=== PATIENT | female | born 1965 | race Caucasian/White ===

== ENCOUNTER 2020-07-11 07:36 | Day surgery (SDC) | payer OTHER ==
[~2020-07-11 07:36] MED LIST: PROPOFOL INJ 200 MG/20 ML VIAL IV ONE
--- NOTE | 2020-07-11 09:54 | Operative Report ---
Operative Report DATE OF SURGERY: 07/11/20 Operative Report: The risk, benefits and alternatives of the procedure including the risk of bleeding, perforation requiring surgery have been explained to the patient in detail and informed consent is obtained. The patient is taken back to the endoscopy suite and placed in left, lateral decubital position. Timeout was called. Propofol medication is administered. Rectal examination is done which did not reveal any masses, tears or fissures. An Olympus videoscope is inserted in his patient's rectum and carefully advanced all the way to the cecum. Prep was good. The cecum was identified by the usual anatomical landmarks including the ileocecal valve as well as the appendiceal office. Photodocumentation is obtained. Scope was then sequentially pulled back via the various segments of the colon including the ascending colon, hepatic flexure, transverse colon, s plenic flexure, descending colon finding to the rectosigmoid portions of the colon. Retroflexion maneuvers performed. PREOPERATIVE DIAGNOSIS: Colorectal cancer screening POSTOPERATIVE DIAGNOSIS: Normal screening colonoscopy OPERATION: Diagnostic colonoscopy SURGEON: VERONICA FORTUNE ANESTHESIA: LMAC TISSUE REMOVED OR ALTERED: None. COMPLICATIONS: None. ESTIMATED BLOOD LOSS: None. INTRAOPERATIVE FINDINGS: As noted above. PROCEDURE: Patient tolerated the procedure well. No immediate postprocedure complications are noted. Patient is discharged in good condition. Discharge date 07/11/2020. Discharge diet: Regular. Discharge activity: Regular. 2 to 3-week follow-up to discuss findings. 10-year surveillance colonoscopy.
[2020-07-11 12:02] VITALS: BP 140/85
--- OUTSIDE RECORDS SUMMARY | 2020-07-14 08:54 | XMS REPORT ---
:1965 Author Organization [facility] Address [address] [place] [address] Care Team Providers Name Role Phone Makayla Sullivan Primary Care Physician Unavailable MD Brenda Hoffmann Attending Clinician Unavailable MD Brenda Hoffmann Attending Clinician Unavailable Allergies, Adverse Reactions, Alerts Allergy Name Allergy Status Severity Reaction(s) Onset Inactive Treat ing Comments Type Date Date Clinician Codeine Allergy to Active Nausea substance Lisinopril Allergy to Active Cough substance Losartan Allergy to Active Arthralgia substance (joint pain) codeine Propensity Active Moderate nausea to adverse reactions to drug Medications Ordered Filled Start Stop Current Ordering Indication Dosage Frequency Signature Comments Components Medication Medication Date Date Medication? Clinician (SIG) Name Name losartan 50 2020-0 Yes 50mg 50 mg = 1 mg oral 8-17 tab(s), tablet 09:00: PO, Daily 00 sertraline 2020-0 Yes 50mg 50 mg = 1 50 mg oral 8-17 tab(s), tablet 09:00: PO, Daily 00 Centrum 2020-0 Yes 11 1 tab(s), 8-17 PO, Daily 08:59: 00 [place] 5 2020-0 Yes 11 1 tab(s), mg-325 mg 8-17 PO, q6h, oral tablet 08:59: for pain, 00 0 Refill(s) gabapentin 2020-0 Yes 100mg 100 mg = 1 100 mg oral 8-17 cap(s), capsule 08:59: PO, Daily, 00 Pain sertraline 2020-0 Yes 25mg 25 mg = 1 25 mg oral 8-06 tab(s), tablet 10:36: PO, Daily 00 amlodipine No amlodipine 5 mg tablet 5 mg TAKE ONE tablet TABLET BY TAKE ONE MOUTH ONE TABLET BY TIME DAILY MOUTH ONE TIME DAILY hydrocodone No hydrocodon 5 e 5 mg-acetamin mg-acetami ophen 325 nophen 325 mg tablet mg tablet TAKE ONE TO TAKE ONE TWO TABLETS TO TWO BY MOUTH TABLETS BY EVERY 6 MOUTH HOURS EVERY 6 NEEDED HOURS NEEDED sertraline No sertraline 50 mg 50 mg tablet TAKE tablet ONE TABLET TAKE ONE BY MOUTH TABLET BY ONE TIME MOUTH ONE DAILY TIME DAILY Problems Condition Condition Condition Status Onset Resolution Last Treatin g Comments Name Details Category Date Date Treatment Clinician Date Fibrocystic Fibrocystic Problem Active 2020-0 disease of Disease of 8-12 breast Breast 00:00: 00 Multiple Multiple Problem Active 2020-0 joint pain Joint Pain 8-12 00:00: 00 History of History of Problem Active 2020-0 abnormal Abnormal 8-12 cervical Cervical 00:00: Papanicolao Papanicolao 00 u smear u Smear Postmenopau Postmenopau Problem Active 2020- zhou state zhou State 8-12 00:00: 00 Screening Screening Problem Active 2020- for for 8-12 malignant Malignant 00:00: neoplasm of Neoplasm of 00 breast Breast Screening Screening Problem Active 2020-0 for for 8-12 malignant Malignant 00:00: neoplasm of Neoplasm of 00 cervix Cervix Screening Screening Problem Active 2020-0 for for 8-12 malignant Malignant 00:00: neoplasm of Neoplasm of 00 colon Colon Chronic Chronic Problem Active 2020-0 kidney Kidney 7-17 disease Disease 00:00: stage 2 Stage 2 00 Laboratory Laboratory Problem Active 20200 test result Test Result 7-17 abnormal Abnormal 00:00: 00 Hyperlipide Hyperlipide Problem Active 2020-0 eugene eugene 7-17 00:00: 00 Depressive Depressive Problem Active 2020-0 disorder Disorder 7-14 00:00: 00 Spinal cord Spinal Cord Problem Active 2020-0 compression Compression 6-22 00:00: 00 Stenosis of Stenosis of Problem Active 20200 interverteb Interverteb 6 ral ral 00:00: foramina Foramina 00 Monoparesis Monoparesis Problem Active 20200 - arm - Arm 01-24 00:00: 00 Essential Essential Problem Active 2020-0 hypertensio Hypertensio 529 n n 00:00: 00 Cervical Cervical Problem Active 2020-0 spondylosis Spondylosis 5-29 with with 00:00: radiculopat Radiculopat 00 hy hy Neck pain Neck Pain Problem Active 20200 01-24 00:00: 00 Carpal Carpal Problem Active tunnel 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-24 syndrome of Syndrome of 00:00: left wrist Left Wrist 00 Body mass Body Mass Problem Active index 25-29 Index 25-29 - - - 00:00: overweight Overweight 00 Spasm of Spasm of Problem Active back Back 01-15 muscles Muscles 00:00: 00 Pain in Pain in Problem Active left arm Left Arm 01-15 00:00: 00 Long-term Long-term Problem Active drug Drug 20 therapy Therapy 00:00: 00 Procedures Procedure Date / Time Performed Performing Clinician Devic e Anterior Cervical Discectomy and 2020-04-14 10:25:00 Fusion Level 2 IPO (NA)1 Cervical Arthrodesis 2020-04-14 00:00:00 Prosthetic Replacement of Cervical 2020-04-14 00:00:00 Intervertebral Disc Abdominoplasty and liposuction Cholecystectomy Liposuction of abdomen Salpingectomy2 Abdominoplasty Liposuction of Subcutaneous Tissue Extraction of [place] Tooth Left Oophorectomy Cholecystectomy Results Test Description Test Time Test Comments Text Results Atomic Results Result Comments [facility] 2019 CORONAVIRUS HUSAM PANEL\S\ 2020-07-08 08:50:00 Test Item Value Reference Range Comments [facility] CORONAVIRUS 2019 HUSAM SOURC (test code = SOURCE3) See comment [facility] 2019 NOVEL CORONAVIRUS HUSAM (test code = [id number]) N ot Detected Not Detect Drugs identified in Urine by Screen [id number] 17:44:00 Test Item Value Reference Range Comments BZO (test code = BZO) negative BAR (test code = BAR) negative HELIO (test code = HELIO) negative THC (test code = THC) negative MET (test code = MET) negative OPI (test code = OPI) negative MTD (test code = MTD) negative TCA (test code = TCA) negative OXY (test code = OXY) negative MDMA (test code = MDMA) negative PCP (test code = PCP) negative AMP (test code = AMP) negative Assessments Condition Name Status Diagnosis Date Treating Clinici an Essential hypertension Active 2020-05-07 23:52:49 Hyperlipidemia Active 2020-05-07 23:52:49 Chronic kidney disease stage 2 Active 2020-05-07 23:52: 49 Cervical spondylosis with radiculopathy Active 23:52:49 Multiple joint pain Active 2020-05-07 23:52:49 Long-term drug therapy 2020-05-07 23:52:49 Body mass index 25-29 - overweight 2020-05-07 23 :52:49 Screening for malignant neoplasm of 2020-05-07 2 3:52:49 breast History of abnormal cervical Active 2020-05-07 23:52:49 Papanicolaou smear Screening for malignant neoplasm of 2020-05-07 2 3:52:49 cervix Postmenopausal state 2020-05-07 23:52:49 Screening for malignant neoplasm of 2020-05-07 2 3:52:49 colon Depressive disorder 2020-05-07 23:52:49 Essential hypertension 2020-04-25 03:36:46 Hyperlipidemia 2020-04-25 03:36:46 Chronic kidney disease stage 2 2020-04-25 03:36: 46 Cervical spondylosis with radiculopathy 03:36:46 Multiple joint pain 2020-04-25 03:36:46 Long-term drug therapy 2020-04-25 03:36:46 Body mass index 25-29 - overweight 2020-04-25 03 :36:46 Screening for malignant neoplasm of 2020-04-25 0 3:36:46 breast History of abnormal cervical Active 2020-04-25 03:36:46 Papanicolaou smear Screening for malignant neoplasm of 2020-04-25 0 3:36:46 cervix Postmenopausal state 2020-04-25 03:36:46 Screening for malignant neoplasm of 2020-04-25 0 3:36:46 colon Depressive disorder 2020-04-25 03:36:46 Cervicalgia Active 0 Encounter for screening for other viral Active 0 diseases Essential hypertension 2020-04-09 22:53:07 Hyperlipidemia 2020-04-09 22:53:07 Chronic kidney disease stage 2 2020-04-09 22:53: 07 Cervical spondylosis with radiculopathy 22:53:07 Multiple joint pain 2020-04-09 22:53:07 Long-term drug therapy 2020-04-09 22:53:07 Body mass index 25-29 - overweight 2020-04-09 22 :53:07 Screening for malignant neoplasm of 2020-04-09 2 2:53:07 breast History of abnormal cervical Active 2020-04-09 22:53:07 Papanicolaou smear Screening for malignant neoplasm of Active 2020-04-09 2 2:53:07 cervix Postmenopausal state Active 2020-04-09 22:53:07 Screening for malignant neoplasm of Active 2020-04-09 2 2:53:07 colon Depressive disorder Active 2020-04-09 22:53:07 Cervicalgia Active 0 Encounters Start End Encounter Admission Attending Care Care Encounter Date/Time Date/Time Type Type Clinicians Facility Department ID 2020-05-08 2020-05-08 [facility]ayla [facility] [id number] 00:00:00 00:00:00 Nate COREMAKER EXPERIMENTAL: [facility]mediate Immediate & 0091 0 [address] [facility] [address] [address], Ph. 2020-04-25 2020-04-25 Makayla Small [facility] [id number] 00:00:00 00:00:00 Nate COREMAKER EXPERIMENTAL: Immediate Immediate & 0082 8 2001 S & Family [facility], [address] [address], Ph. 2020-04-14 2020-04-15 [facility] [id number] 08:26:07 09:20:00 Nicanor Hoffmann 2020-04-10 2020-04-10 [facility] [id number] 12:45:00 23:59:59 Nicanor Hoffmann 2020-04-10 2020-04-10 [facility] [id number] 00:00:00 00:00:00 Nate COREMAKER EXPERIMENTAL: Immediate Immediate & [address]81 [address] [address], Ph. 2020-04-03 2020-04-04 [facility] [id number] 10:14:39 23:59:59 Nicanor Hoffmann Immunizations Ordered Immunization Filled Immunization Date Status Commen ts Refusal Reason Name Name influenza, 2019-10-20 Completed injectable, 00:00:00 quadrivalent Payers Payer Name Policy Type Policy Number Effective Date Expiration D ate Social History Smoking Status Start Date Stop Date Ex-smoker (finding) 2020-04-14 09:26:43 2020-04-14 09:26:43 Social History Observation Description Sex Female Vital Signs Vital Name Observation Time Observation Value Comments Height 2020-05-08 00:00:00 63 [in_i] BMI (Body Mass Index) 2020-05-08 00:00:00 26 kg/m2 Body Weight 2020-05-08 00:00:00 147 [lb_av] Respiratory Rate 2020-04-15 07:00:00 18 /min Systolic Blood Pressure 2020-04-15 07:00:00 131 mm[Hg] Diastolic Blood Pressure 2020-04-15 07:00:00 75 mm[Hg] Temperature Oral 2020-04-15 07:00:00 36.5 Kiersten Peripheral Pulse Rate 2020-04-15 07:00:00 75 /min Temperature Oral 2020-04-15 04:00:00 36.4 Kiersten Peripheral Pulse Rate 2020-04-15 04:00:00 72 /min Respiratory Rate 2020-04-15 04:00:00 17 /min Systolic Blood Pressure 2020-04-15 04:00:00 133 mm[Hg] Diastolic Blood Pressure 2020-04-15 04:00:00 70 mm[Hg] Temperature Oral 2020-04-15 00:00:00 36.6 Kiersten Peripheral Pulse Rate 2020-04-15 00:00:00 80 /min Respiratory Rate 2020-04-15 00:00:00 17 /min Systolic Blood Pressure 2020-04-15 00:00:00 141 mm[Hg] Diastolic Blood Pressure 2020-04-15 00:00:00 67 mm[Hg] Heart Rate Monitored 2020-04-14 12:40:00 78 /min Temperature - Temporal Artery 2020-04-14 12:40:00 36.4 Kiersten Heart Rate Monitored 2020-04-14 12:35:00 74 /min Heart Rate Monitored 2020-04-14 12:30:00 72 /min Temperature - Temporal Artery 2020-04-14 09:13:00 36.2 Kiersten Apical Heart Rate 2020-04-14 09:13:00 71 /min Hospital Discharge Instructions Patient Yowgwoucw96/18/2020 08:16:29Venous Thromboembolism PreventionVenous Thromboembolism PreventionVenous thromboembolism (VTE) is a condition in which a blood clot (thrombus) develops in the body. A thrombus usually occurs in a deep vein in the leg or the pelvis (DVT), but it can also occur in thearm. Sometimes, pieces of a thrombus can break off from its original place of development and travelthrough the bloodstream to other parts of the body. When that happens, the thrombus is called an embolus. An embolus that travels to one or both lungs is called a pulmonary embolism. An embolism can block the blood flow in the blood vessels of other organs as well.VTE is a serious health condition that can cause disability or . It is very important to get help right away and to not ignore symptoms.How can a VTE be prevented? Exercise regularly. Take a brisk 30 minute walk every day. Staying active and moving around can help you to prevent blood clots. Avoid sitting or lying in bed for long periods of time without moving your legs. Change your position often, especially during long-distance travel (over 4 hours). If you are a woman who is over 35 years of age, avoid unnecessary use of medicines that contain estrogen. These include control pills and hormone replacement therapy. Do not smoke, especially if you take estrogen medicines. If you need help quitting, ask your health care provider. Eat plenty of fruits and vegetables. Ask your health care provider or dietitian if there are foods that you should avoid. Maintain a weight that is appropriate for your height. Ask your health care provider what weight is healthy for you. Wear loose-fitting clothing. Avoid constrictive or tight clothing around your legs or waist. Try not to bump or injure your legs. Avoidcrossing your legs when you are sitting. Do not use pillows under your knees while lying down unless told by your health care provider. Wear support hose (compression stockings or MONSTER hose) as told by your health care provider. Compression stockings increase blood flow in your legs and can help prevent blood clots. Do not let them bunch up when you are wearing them.How can I prevent VTE when I travel?Long-distance travel (over 4 hours) can increase the risk of a VTE. To prevent VTE when traveling: Exercise your legs every hour by standing, stretching, and bending and straightening your legs. If you are traveling by airplane, train, or bus, walk up and down the aisle as often as possible to get your blood moving. If you are traveling by car, stop and get out of the car every hour to exercise your legs and stretch. Other types of exercise might include: Keeping your feet flat on the ground and raising your toes. Switching from tightening the muscles in your calves and thighs to relaxing those same muscles while you are sitting. Pointing and flexing your feet at the ankle jointswhile you are sitting. Stay well hydrated while traveling. Drink enough water to keep your urine clear or pale yellow. Avoid drinking alcohol during long travel.Generally, it is not recommended that you take medicines to prevent DVT during routine travel.How can VTE be prevented if I am hospitalized?A VTE may be prevented by taking medicines that are prescribed to prevent blood clots (anticoagulants). You can also help to prevent VTE while in the hospital by taking these actions: Get out ofbed and walk. Ask your health care provider if this is safe for you to do. Request the use of a sequential compression device (SCD). This is a machine that pumps air into compression sleeves that are wrapped around your legs. Request the use of compression stockings, which are tight, elastic stoc kings that apply pressure to the lower legs. Compression stockings are sometimes used with SCDs.How can I prevent VTE after surgery?Understand that there is an increased risk for VTE for the first 46 weeks after surgery. During this time: Avoid long-distance travel (over 4 hours). If you must travel during this time, ask your health care provider about additional preventive actions that you cantake. These might include exercising your arms and legs every hour while you travel. Avoid sitting or lying still for too long. If possible, get up and walk around one time every hour. Ask your health care provider when this is safe for you to do.Get help right away if: You have new or increasedpain, swelling, or redness in an arm or leg. You have numbness or tingling in an arm or leg. You have shortness of breath while active or at rest. You have chest pain. You have a rapid or irregular heartbeat. You feel light- headed or dizzy. You cough up blood. You notice blood in your vomit, bowel movement, or urine.These symptoms may represent a serious problem that is an emergency. Do not wait to see if the symptoms will go away. Get medical help right away. Call your local emergency services (911 in the [place] Do not drive yourself to the hospital.This information is not intended to replace advice given to you by your health care provider. Make sure you discuss any questions you have with your health care provider.Document Released: 08/03/2010 Document Revised: 03/31/2018 Document Reviewed: 12/10/2015Elsevier Interactive Patient Education ? 2019 [employer].04/15/2020 08:16:29Preventing Surgical Site Infections ([facility]) (CUSTOM)PREVENTING SURGICAL SITE INFECTIONSWhat can you do?Hand HygieneWashing your hands or using an alcohol gel is the number one way to prevent infection.Always wash your hands or use an alcohol hand rub before you touch the surgical site. Make sure anyone else does the same before touching the surgical site.Caring for your surgical siteCareof your surgical site continues after you go home. There are some simple things that you can do to help prevent infection at your surgical site. Anyone who touches the surgical site, including yourself and healthcare providers, should wash hands, or use an alcohol hand rub, before and after touching the surgical site Cleanse the wound according to your doctors instructions. Do not removethe dressing unless your doctor has instructed you to do so. Avoid tub baths, soaking in water, or swimming until your surgeon tells you it is OK. Do not allow your pet to sit or lie on the surgical site. Make sure you are eating nutritiously. Stop tobacco use. Place clean linen where you will be sleeping. Keep the wound clean and dry.Report any redness or drainage to your surgeon immediately.YpqdkyzwEzwf04/18/2020 08:16:29Preventing Constipation After SurgeryPreventing Constipation After SurgeryConstipation is a common problem after surgery. Many things can make constipation more likely after a surgery, including: Certain medicines, especially numbing medicines (anesthetics)and very strong pain medicines called opioids. Feeling stressed because of the surgery. Eatingdifferent foods than normal. Being less active.Symptoms of constipation include: Having fewer than three bowel movements a week. Straining to have a bowel movement. Having hard, dry, or wsyafj-gljt-bevake stools. Feeling full or bloated. Having pain in the lower abdomen. Not feeling relief after having a bowel movement.You can take steps to help prevent constipation after surgery.Follow these instructions at home:Eating and drinking Eat foods that have a lot of fiber in them.These include fresh fruits and vegetables, whole grains, and beans. Limit foods that are high in fat and processed sugars, such as fried and sweet foods. These include dominican fries, hamburgers, cookies, and candy. Take a fiber supplement as told by your health care provider. If you are not taking a fiber supplement and you think you are not getting enough fiber from foods, talk to your health care provider about adding a fiber supplement to your diet. Drink enough fluid to keep your urine pale yellow. Drink clear fluids, especially water. Avoid drinking alcohol, caffeine, and soda. These can make constipation worse.Activity After surgery, return to your normal activities slowly, or w hen your health care provider says it is okay. Start walking as soon as you can. Try to go a little farther each day. Once your health care provider approves, do some sort of regular exercise. This helps prevent constipation.Bowel movements Go to the restroom when you have the urge to go. Do not hold it in. Try drinking something hot to get a bowel movement started. Keep track of how often you use the restroom.Medicine Take jtqn-wox-ivkdatf and prescription medicines only as told by your health care provider. Talk to your health care provider about medicines that may help prevent constipation, particularly if you have a history of constipation. Your health care provider may suggest a stool softener, laxative, or fiber supplement. Do not take any medicines without talking to your health care provider first.Contact a health care provider if: You used stool softeners or laxatives and still have not had a bowel movement within 2448 hours after using them. You have not had a bowel movement in 3 days. You have a fever.Get help right away if: Your constipation lasts for more than 4 days or gets worse. You have bright red blood in your stool. You have painin the abdomen or rectum. You have very bad cramping. You have thin, pencil-like stools. You have unexplained weight loss.Summary Constipation is a common problem after surgery. Many thingscan make constipation more likely after a surgery, including certain medicines, eating different foods than normal, and being less active. Symptoms of constipation include having fewer than three bowel movements a week, straining to have a bowel movement, pain in the lower abdomen, and feeling fullor bloated. A diet rich in high-fiber foods, fluids, physical activity, and medicines, such as stool softeners and laxatives, can help prevent constipation.This information is not intended to replace advice given to you by your health care provider. Make sure you discuss any questions you have withyour health care provider.Document Released: 12/10/2013 Document Revised: 11/14/2017 Document Reviewed: 11/14/2017Elsevier Interactive Patient Education ? 2019 [employer].04/15/2020 08:16:29Post-Operavtive Discharge Instructions ([facility]) (CUSTOM)Post-Operative Discharge InstructionsWHAT TO EXPECT AFTER ANESTHESIAAfter the procedure, it is typical to experience: Nausea and vomiting. Sorethroat. Sleepiness. Dizziness. Weakness. Pain at the IV site. Trouble concentrating.HOME CARE INSTRUCTIONSFor the first 24 hours after anesthesia: Have a responsible person with you. Do not care for small children independently. Do not drive a car. Do not operate hazardous machinery. Do not drink alcohol. Do not take medicine that has not been prescribed by your health careprovider. Do not sign important papers or make important decisions.EATING AND DRINKING Follow any instructions from your health care provider about eating or drinking restrictions. When you feel hungry, start by eating small amounts of foods that are soft and easy to digest (bland). Gradually return to your regular diet. Drink enough fluid to keep your urine a pale yellow. It is not recommended that you take pain medicine on an empty stomach. Nausea and vomiting are common after receiving anesthesia. If you vomit, rehydrate by drinking water, juice or clear broth.SEEK MEDICAL CARE IF: You have nausea and vomiting that continue for more than one day after anesthesia. Youdevelop a rash. You have redness around your IV site that gets worse. You have a temperature greater that 101 degrees orally or 102 degrees rectally.SEEK IMMEDIATE MEDICAL CARE IF: You have difficulty breathing. You have chest pain. You are unable to pass urine. You have blood in your urine or stool, or you vomit blood. You have any allergic reactions.BLEEDING RISK AFTER SURGERYIt is normal to have some bleeding after surgery, but if you notice bleeding coming through your bandag es: Have someone hold firm pressure on the surgical site and reinforce it with additional dressing. If you are bleeding from an extremity, elevate the extremity above the level of your heart.WHENSHOULD YOU CALL FOR HELP? If your incision is still bleeding after 15 minutes, call your surgeon immediately. If your dressing is fully saturated in under an hour, or you are unable to stop the bleeding with firm pressure, call your surgeon immediately. If you cant get in touch with your doctor, go to Urgent Care or to the Emergency Department at the nearest hospital.Call 911 anytime you think you may need emergency care.Make sure you follow your doctors instructions regarding dressing changes, bathing and surgical incision site care. Make sure you discuss any questions you have with your health care provider.PREVENTING SURGICAL SITE INFECTIONSWHAT IS A SURGICAL SITE INFECTION?A surgical site infection is an infection that occurs after surgery in the part of the body where the surgery took place. Most patients who have surgery do not develop an infection. However, infections develop in about 1 to 3 out of every 100 patients who have surgery.Some of the common symptoms of a surgical site infection are: Redness and pain around the area where you had surgery Drainage of cloudy fluid from your surgical wound Fever Swelling Itching BurningWHAT CAN YOU DO TO HELP PREVENT A SURGICAL SITE INFECTION?Hand HygieneWashing your hands or using an alcohol gel is the numberone way to prevent infection.Always wash your hands or use an alcohol hand rub before you touch the surgical site. Make sure anyone else does the same before touching the surgical site.Caring for yoursurgical siteCare of your surgical site continues after you go home. There are some simple things that you can do to help prevent infection at your surgical site. Anyone who touches the surgical site, including yourself and healthcare providers, should wash hands, or use an alcohol hand rub, before and after touching the surgical site Cleanse the wound according to your doctors instructions. Do not remove the dressing unless your doctor has instructed you to do so. Avoid tub baths, soaking in water, or swimming until your surgeon tells you it is OK. Do not allow your pet to sit or lie on the surgical site. Make sure you are eating nutritiously. Stop tobacco use. Place clean linen where you will be sleeping. Keep the wound clean and dry.Report any signs of infectionto your surgeon immediately.Pain Relief Preoperatively and PostoperativelyIf you have questions, problems, or concerns about the pain that you may feel after surgery, let your health care provider know.?Patients have the right to assessment and management of pain. Severe pain after surgeryand the fear or anxiety associated with that painmay cause extreme discomfort that: Prevents sleep. Decreases the ability to breathe deeply and to cough. This can result in pneumonia or other upper airway infections. Causes the heart to beat more quickly and the blood pressure to be higher. Increases the risk for constipation and bloating. Decreases the ability of wounds to heal. May result in depression, increased anxiety, and feelings of helplessness.Relieving pain before surgery (preoperatively) is also important because it lessens pain that you have after surgery (postoperatively). Patients who receive pain relief both before and after surgery experience greater pain relief than those who receive pain relief only after surgery. Let your health care provider know if you are having uncontrolled pain.?This is very important.?Pain after surgery is more difficult to manage if it is severe, so receiving prompt and adequate treatment of acute pain is necessary. If you become constipatedafter taking pain medicine, drink more liquids if you can. Your health care provider may have you take a mild laxative.PAIN CONTROL METHODSYour health care providers follow policies and procedures about the management of your pain.?These guidelines should be explained to you before surgery.?Plans for pain control after surgery must be decided upon by you and your health care provider and put into usewith your full understanding and agreement.?Do not be afraid to ask questions about the care that you are receiving.Your health care providers will attempt to control your pain in various ways, and these methods may be used together (multimodal analgesia). Using this approach has many benefits for you, including being able to eat and move around.As-Needed Pain Control You may be given pain medicine through an IV tube or as a pill or liquid that you can swallow. Let your health care provider know when you are having pain, and he or she will give you the pain medicine that is ordered for you.Medicine That Numbs the Area (Local Anesthetic)You may be given pain medicine: As an injection near the area of the pain (local infiltration). As an injection near the nerve that controls the sensationto a specific part of your body (peripheral nerve block). In your spine to block pain (spinal block).Opioids Moderate to moderately severe acute pain after surgery may respond to opioids.?Opioidsare narcotic pain medicine. Opioids are often combined with non-narcotic medicines to improve pain relief, lower the risk of side effects, and reduce the chance of addiction. If you follow your health care provider's directions about taking opioids and you do not have a history of substance abuse, your risk of becoming addicted is very small.?To prevent addiction, opioids are given for short periods of time in careful doses.Other Methods of Pain Control Steroids. Physical therapy. Heat and cold therapy. Compression, such as wrapping an elastic bandage around the area of the pain. Massage.This information is not intended to replace advice given to you by your health care provider.Make sure you discuss any questions you have with your health care provider.[employer] Interactive Patient Education ?2015 [employer].04/15/2020 08:16:29Pain Medicine Instructions, Ujmj-hj-IkphYfof Medicine InstructionsYou may need pain medicine after an injury or illness. Two common types of pain medicine are: Opioid pain medicine. These may be called opioids. Non-opioid pain medicine. This includes NSAIDs.It is important to follow your doctor's instructions when you are taking pain medicine.Doing this can keep yourself and others safe.How can pain medicine affect me?Pain medicine may not make all of your pain go away. It should make you comfortable enough to: Move. Breathe. Do normal activities.Opioids can cause side effects, such as: Trouble pooping (constipation). Feeling sick to your stomach (nausea). Throwing up (vomiting). Feeling very sleepy. Confusion. Taking the medicine for nonmedical reasons even though taking it hurts your health and well-being (opi oid use disorder). Trouble breathing (respiratory depression).Taking opioids for longer than 3 days raises your risk of these side effects.Taking opioids for a long time can affect how well you can do daily tasks. Taking them for a long time also puts you at risk for: Car crashes. Depression. Suicide. Heart attack. Taking too much of the medicine (overdose). This can lead to .What should I do to stay safe while taking pain medicine?Take your medicine as told Take pain medicine exactly as told by your doctor. Take it only when you need it. Write down the times when you take your pain medicine. Look at the times before you take your next dose. Take other ustk-tfu-eeapk er or prescription medicines only as told by your doctor. If your pain medicine has acetaminophen in it, do not take any other acetaminophen while you are taking this medicine. Too much can damage the liver. Get pain medicine prescriptions from only one doctor.Avoid certain activitiesWhile you are taking prescription pain medicine, and for 8 hours after your last dose: Do not drive. Do not use machinery. Do not use power tools. Do not sign legal documents. Do not drink alcohol. Do not take sleeping pills. Do not take care of children by yourself. Do not do any activities that involve climbing or being in high places. Do not go into any body of water unless there is an adult nearby who can watch you and help you if needed. This includes: Lakes. Black. Oceans. Spas. Swimming pools.Keep others safe Store your medicine as told by your doctor. Keepit where children and pets cannot reach it. Do not share your pain medicine with anyone. Do not save any leftover pills. If you have leftover pills, you can: Bring them to a take-back program. Bring them to a pharmacy that has a drug disposal container. Throw them in the trash. Check the medicine label or package insert to see if it is safe to throw it out. If it is safe, take the medicine out of the container. Mix it with something that makes it unusable, such as pet waste. Then put the medicine in the trash.General instructions Talk with your doctor about other ways to manage your pain. If you have trouble pooping: Drink enough fluid to keep your pee (urine) pale yellow. Use a poop (stool) softener as told by your doctor. Eat more fruits and vegetables. Keep all follow-up visits as told by your doctor. This is important.Contact a doctor if: Your medicine is not helping with your pain. You have a rash. You feel depressed.Get help right away if:Seek medical care right away if you are taking pain medicines and you (or people close to you) notice any of the following: Trouble breathing. Breathing that is shorter than normal. Breathing that is more shallow than normal. Confusion. Sleepiness. Trouble staying awake. Feeling sick to your stomach. Throwing up. Your skin or lips turning pale or bluish in color. Tongue swelling.If you ever feel like you may hurt yourself or others, or have thoughts about taking your own life, get help right away. Go to your nearest emergency department or call: Your local emergency services(911 in the [place] A suicide crisis helpline, such as the National Suicide Prevention Lifeline at1-870.668.5173. This is open 24 hours a day.Summary Take your pain medicine exactly as told by your doctor. Pain medicine can help lower your pain. It may also cause side effects. Talk with your doctor about other ways to manage your pain. Follow your doctor's instructions about how to take your pain medicine and keep others safe. Ask what activities you should avoid while taking pain medi cine.This information is not intended to replace advice given to you by your health care provider. Make sure you discuss any questions you have with your health care provider.Document Released: 01/31/2009 Document Revised: 03/27/2018 Document Reviewed: 03/27/2018[employer] Interactive Patient Education ? 2019 [employer].04/15/2020 08:16:29[employer] [place] Patient Safety: A Guide to Preventing Falls at Home (CUSTOM)[facility] Patient InformationPatient Safety: A Guide to Preventing Falls at HomeThe [facility] Patient InformationOriginal Date: 03/17/06 Revised date: 04/20/11Patient Safety: A Guide to Preventing Falls At Home Why is it important to prevent falls?Falls and the complications associated with falls are one of the most serious health problems facing the elderly. Preventing a fall is important to maintaining an active and independent lifestyle.Who is at risk for falls?Anyone can fall. No one wants to fall. Falls can occur in any age group; at any time and at any place. A fall can be a very serious and life threatening event for any person age 64 or older.Why do people fall?An unsafe environment may cause falls. An illness or physical condition may affect your strength and balance, making you more likely to fall. Some environmental factors that may cause falls are: Wet floors Loose carpets, tiles and throw rugs Equipment in halls or walkways Poor lighting Waxed floors Poor fitting or inadequate footwear Inappropriate use of assistive devices, canes, walkers, andwheelchairs Any other object at the floor level that a person can trip or slip onWhat illnesses or conditions make you unsteady on your feet or at risk for injury due to fall?Illness or conditions that may make you unsteady on your feet are: Poor vision/hearing Poor gait/mobility Muscle weakness Incontinence Syncope (dizziness) Low blood pressureLow blood sugar Seizures Poor nutrition/dehydration Medication reactions At risk for bleeding At risk for fractures Advanced age (>80)Standard [place] Order Number - [id number] [facility] CenterPatient InformationOriginal Date: 03/17/06 Revised date: 04/20/11Patient Safety: A Guide to PreventingFalls At Home What should I tell my doctor? See your doctor as prescribed. See your eye doctoryearly. Tell your doctor if you have fallen and describe the circumstancesofthefall(s). Tell your doctor if you use any walker aids, such as a cane or awalker. Tell your doctor about any vision problems and any other medicalproblems you may have. Tell you doctor if you have any side effects from yourmedications. Take good care of your feet. Let your doctor know if you are taking laxatives.How can I make home safe? When getting out of bed, sit on the side of the bed before standingup. Place grab bars securely mounted in bathrooms around toilets,bath tubs, and shower areas. Place hand rails on both sides of stairwells. Make sure your home is well lit. Use night-lights in the bedroom, bathroom, hallways andstairways. Remove throw rugs, or fasten them to the floor carpet tape. Tack down carpet edges. Remove loose tiles. Remove electrical cords from pathways.Be sure to tell your doctor about all medications you are taking.Adapted from: Preventing Falls: Instructions for Patients and Families; [facility], January 2001 A Patient's Guide to Preventing Falls, The [place] [employer] SocietyStandard [place] Order Number - [id number] 08:16:29Incision Care, Adult, Uehu-uu-HntzTqmjwgwr Care, AdultAn incision is a cut that a doctor makes in your skin for surgery (for a procedure). Most times, these cuts are closed after surgery. Your cut from surgery may be closed with stitches (sutures), judd, skin glue, or skin tape (adhesive strips).You may need to return to your doctor to have stitches or judd taken out. This may happen many days or many weeks after your surgery. The cut needs to be well cared for so it does not get infected.How to care for your cutCut care Follow instructions from your doctor about how to take care of your cut. Make sure you: Wash your hands with soap and water before you change your bandage (dressing). If you cannot use soap and water, use hand oracle bpm consultant. Change your bandage as told by your doctor. Leave stitches, skin glue, or skin tape in place. They may need to stay in place for 2 weeks orlonger. If tape strips get loose and curl up, you may trim the loose edges. Do not remove tape strips completely unless your doctor says it is okay. Check your cut area every day for signs of infection. Check for: More redness, swelling, or pain. More fluid or blood. Warmth. Pus or a bad smell. Ask your doctor how to clean the cut. This may include: Using mild soap and water. Using a clean towel to pat the cut dry after you clean it. Putting a cream or ointment on the cut.Do this only as told by your doctor. Covering the cut with a clean bandage. Ask your doctor when you can leave the cut uncovered. Do not take baths, swim, or use a hot tub until your doctor says it is okay. Ask your doctor if you can take showers. You may only be allowed to take sponge baths for bathing.Medicines If you were prescribed an antibiotic medicine, cream, or ointment, take the a ntibiotic or put it on the cut as told by your doctor. Do not stop taking or putting on the antibiotic even if your condition gets better. Take gmmx-dvz-dzmffyx and prescription medicines only as told by your doctor.General instructions Limit movement around your cut. This helps healing. Avoid straining, lifting, or exercise for the first month, or for as long as told by your doctor. Follow instructions from your doctor about going back to your normal activities. Ask your doctor what activities are safe. Protect your cut from the sun when you are outside for the first 6 months, orfor as long as told by your doctor. Put on sunscreen around the scar or cover up the scar. Keep all follow-up visits as told by your doctor. This is important.Contact a doctor if: Your have more redness, swelling, or pain around the cut. You have more fluid or blood coming from the cut. Your cut feels warm to the touch. You have pus or a bad smell coming from the cut. You have a fever or shaking chills. You feel sick to your stomach (nauseous) or you throw up (vomit). You aredizzy. Your stitches or judd come undone.Get help right away if: You have a red streak coming from your cut. Your cut bleeds through the bandage and the bleeding does not stop with gentle pressure. The edges of your cut open up and separate. You have very bad (severe) pain. You have a rash. You are confused. You pass out (faint). You have trouble breathing and you have afast heartbeat.This information is not intended to replace advice given to you by your health care provider. Make sure you discuss any questions you have with your health care provider.Document Released: 11/06/2012 Document Revised: 04/22/2017 Document Reviewed: 04/22/2017[employer] Interactive Patient Education ? 2019 [employer].04/15/2020 08:16:29How to Use Cold Therapy, Whfb-ga-FpwbCgp to Use ColdTherapyCold therapy, or cryotherapy, is a treatment that uses cold temperatures to treat an injury or medical condition. It includes using cold packs or ice packs to reduce pain and swelling. Only use cold therapy if your doctor says it is okay.What are the risks?Generally, cold therapy is a safe treatment. However, it is not safe for: People who are not able to say they are in pain. These includesmall children and people who have memory problems. People who have certain conditions, such as: A problem in the vessels that slows blood flow to the fingers and toes (Raynaud's syndrome). Feeling very cold easily (cold hypersensitivity). Lack of feeling in the area being iced.Cold therapy may not be safe for people who have other conditions. Do not use it without talking to your doctorif you have: A heart condition. High blood pressure. Open or healing wounds. An infection. Pain and swelling in your joints (rheumatoid arthritis). Poor blood flow in the body. Diabetes. Certain skin conditions.How can I make a cold pack?When using a cold pack at home to reducepain and swelling, you can use: A silica gel cold pack that has been left in the freezer. You canbuy this online or in stores. A sealable plastic bag that has been filled with crushed ice. A washcloth or paper towels soaked in cold (or ice) water. A plastic bag of frozen vegetables. Throwthem away when you are finished using them as a cold pack.Supplies needed: A cold pack. A towel. This can be dry or damp, based on what you like.How to use cold therapy1. Have your cold pack ready.2. Place a towel between the cold pack and your skin. You may also wrap the cold pack in a towel.3.Put the cold pack on the affected area. Keep it on for no more than 20 minutes at a time.4. Check your skin after 5 minutes to make sure that there is no damage to the area. Check for: White spots on your skin. Your skin may look blotchy or mottled. Skin that looks blue or pale. Skin that feels waxy or hard.5. Repeat these steps as many times each day as told by your doctor.Always use a towel to avoid direct contact with your skin.Contact a doctor if: You start to have white spots on your skin. This may give your skin a blotchy or mottled look. Your skin turns blue or pale. Your skin becomes waxy or hard. Your swelling gets worse.Summary Cold therapy, or cryotherapy, is used to treat an injury or other conditions. It includes using cold packs or ice packs to reduce pain and swelling. Cold therapy is not safe for people who are not able to say they are in pain. When using cold packs or ice packs, always place a towel between the cold source and your skin. Check your skin after 5 minutes of icing it. This is to make sure that there is no skin damage. Contact your doctor if you notice changes in your skin or your swelling gets worse.This information is not intended to replace advice given to you by your health care provider. Make sure you discuss any questions you have with your health care provider.Document Released: 01/31/2009 Document Revised: 05/14/2019 Document Reviewed: 05/14/2019[employer] Interactive Patient Education ? 2019 [employer].04/15/2020 08:16:29Hand WashingHand WashingGerms such as bacteria, viruses, and parasites are found everywhere. They can be in the air and water, and they can be on surfaces like food, door handles, and your skin. Every day, your hands come into contact with germs. Many of these germs can make you and your family sick. Washing your hands is one of the easiest and most effective ways to lower your risk of getting and sharing germs.When should I wash my hands?You should wash your hands whenever you think they are dirty. You should also wash your hands: Before: Visiting a baby or anyone with a weakened disease-fighting system (immunesystem). Putting in or taking out contact lenses. After: Using the bathroom or helping someone else use the bathroom. Working or playing outside. Touching or taking out the garbage. Touching anything dirty around your home. Sneezing, coughing, or blowing your nose. Using a phone, including your mobile phone. Touching an animal, animal food, animal waste, or its toys or leash. Touching money. Using household body shop floorperson or toxic chemicals. Handling soiled clothes, bedding, or rags. Using public transportation. Going shopping, especially if you use a shopping cart or basket. Shaking hands. Handling livestock. Before and after: Preparing food. Eating. Visiting or taking care of someone who is sick. This includes touching used tissues, toys, and clothes. Changing a bandage (dressing) or taking care of an injury or wou nd. Giving or taking medicine. Preparing a bottle for a baby. Feeding a baby or young child. Changing a diaper.What is the correct way to wash my hands?1. Wet your hands with clean, runningwater. Turn off the water or move your hands out of the running water.2. Apply liquid soap or bar soap to your hands.3. Rub your hands together quickly to create lather.4. Keep rubbing your hands together for at least 20 seconds. Thoroughly scrub all parts of your hands, including under your fingernails and between your fingers.5. Rinse your hands with clean, running water until all the soap is gone.6. Dry your hands using an air dryer or a clean paper or cloth towel, or let your hands air-dry. Do not use your clothing or a soiled towel to dry your hands.If you are in a public restroom, use a papertowel: To turn off the water faucet. To open the bathroom door.How can I clean my hands if I do not have soap and water?If soap and clean water are not available, use an alcohol-based wipe, spray, or hand gel. Use a hand-sanitizing agent that contains at least 60% alcohol. If you are preparing food, hand sanitizers are not recommended as a replacement for hand washing with soap and water.To usea hand oracle bpm consultant, follow the directions on the product, and: Apply enough product to cover your hands. Make sure you wipe, rub, or spray the product so that it reaches every part of your hands and wrists. Include the backs of your hands, between your fingers, and under your fingernails. Rub the product onto your hands until it dries.Summary Germs such as bacteria, viruses, and parasites are found everywhere. Your hands come into contact with germs every day. Many of these germs can make you and your family sick. Washing your hands is one of the easiest and most effective ways to lower your risk of getting and sharing germs.This information is not intended to replace advice given to you by your health care provider. Make sure you discuss any questions you have with your health care provider.Document Released: 04/05/2006 Document Revised: 05/24/2018 Document Reviewed: 05/24/2018[employer] Interactive Patient Education ? 2019 [employer].04/15/2020 08:16:29Cervical FusionCervical FusionCervical fusion is a procedure that is done on bones in the neck (cervical spine) to relieve pressure on the spinal cord or one or more nerve roots.There are two types of cervical fusion: Posterior cervical fusion. This surgery is done through the back (posterior) of the neck. The goal of thisprocedure is to make two or more of the bones in the spinal column (vertebrae) grow together (fuse).This procedure is most commonly used to treat neck fractures and dislocations and to fix deformitiesin the curve of the neck. Anterior cervical fusion. This surgery is done through the front (anterior) part of the neck. This procedure is most commonly used to treat herniated cervical disk, degenerative cervical disease, and arthritis in the cervical spine. During this type of surgery: The affec monster disk between the two vertebrae (intervertebral disk) is removed, as well as any extra bone on the edges of the vertebrae (bone spurs). This takes pressure off of the nerves or spinal cord (decompression). The area where the disk was removed is filled with a bone material (graft) or artificial bone material (implant) and then it fuses over time.In either procedure, hardware such as rods, screws, metal plates, or cages may be inserted to stabilize the vertebrae while they heal.Tell a health care provider about: Any allergies you have. All medicines you are taking, including vitamins, herbs, eye drops, creams, and yelt-hlj-hszrxgj medicines. Any problems you or family members have hadwith anesthetic medicines. Any blood disorders you have. Any surgeries you have had. Any medical conditions you have. Whether you are or may be .What are the risks?Generally, this is a safe procedure. However, problems may occur, including: Infection. Bleeding. Allergic reactions to medicines or dyes. Damage to other structures or organs, such as nerves near the spine. Spinal fluid leakage. Blood clots. Trouble controlling urination or bowel movements. Vertebrae not fusing together completely (pseudoarthrosis). Temporary hoarseness of the voice. Difficulty swallowing.What happens before the procedure?Staying hydratedFollow instructions from your health care provider about hydration, which may include: Up to 2 hours before the procedure you may continue to drink clear liquids, such as water, clear fruit juice, black coffee, and plain tea.Eating and drinking restrictionsFollow instructions from your health care provider about eating and drinking, which may include: 8 hours before the procedure stop eating heavy meals or foods such as meat, fried foods, or fatty foods. 6 hours before the procedure stop eating light meals or foods, such as toast or cereal. 6 hours before the procedure stop drinking milk or drinks that contain milk. 2 hours before the procedure stop drinking clear liquids.Medicines Ask your health care provider about: Changing or stopping your regular medicines. This is especially important if you are taking diabetes medicines or blood thinners. Taking medicines such as aspirin and ibuprofen. These medicines can thin your blood. Do not take these medicines before your procedure if your health care provider instructs you not to. You may be given antibiotic medicine to help prevent infection.General instructions Ask your health care provider how your surgical site willbe marked or identified. You will have blood and urine samples taken. You may have tests, suchas: X-rays. CT scan. MRI. Plan to have someone take you home from the hospital or clinic. If you will be going home right after the procedure, plan to have someone with you for 24 hours.What happens during the procedure? To reduce your risk of infection: Your health care team willwash or sanitize their hands. Your skin will be washed with soap. Hair may be removed from thesurgical area. An IV tube will be inserted into one of your veins. You will be given one or more of the following: A medicine to help you relax (sedative). A medicine to make you fall asleep (general anesthetic). If you are having a posterior cervical fusion: An incision will be madein the back of your neck. Two or more vertebrae will be joined into one solid section of bone with a bone graft. If you are having an anterior cervical fusion: An incision will be made in the area where the fusion will be placed. This is?usually done at the front of your neck. Your neck muscles will be pushed aside. The affected disk and bone spurs will be removed (decompression). The area where the disk was removed will then be filled with bone graft or bone implants or both. Screws and rods or metal plates may be used to stabilize the vertebrae while they fuse. Your incision may be closed. A bandage (dressing) may be placed over your incision.The procedure may vary among health care providers and hospitals.What happens after the procedure? You will be given medicine to relieve pain as needed. You will continue to receive fluids and medicines through an IV tube. Your blood pressure, heart rate, breathing rate, and blood oxygen level will be monitored until the medicines you were given have worn off. You may be given a brace to wear while you heal. Do not drive until your health care provider approves. You may have to wear compression stockings. These stockings help to prevent blood clots and reduce swelling in your legs. You may be asked to do breathing exercises. This helps prevent a lung infection. You will be encouraged to stand up and walk as soon as you are able. You will be taught how to move correctly and how to stand and walk. You will be assisted to turn in bed frequently by moving your whole body without twisting your back (log rolling technique).This information is not intended to replace advice given to you by your healthcare provider. Make sure you discuss any questions you have with your health care provider.Document Released: 02/04/2003 Document Revised: 03/09/2017 Document Reviewed: 02/23/2017[employer] Interactive Patient Education ? 2019 [employer].04/15/2020 08:16:29Anterior Cervical Diskectomy and FusionAnterior Cervical Diskectomy and FusionAnterior cervical diskectomy and fusion is a surgery to remove and replace an intervertebral disk. Intervertebral disks are plates of cartilage located between the bonesof the spine. This surgery is done when an intervertebral disk in the neck puts pressure on the spine or on a nerve.The surgery is done through the front (anterior) part of the neck. During the surgery, the damaged disk is removed and replaced with a plastic implant, a bone from another part of the body (bone graft), or both. Sometimes metal plates and screws (hardware) are also put in the neck to help keep the implant or bone graft in place and to allow the bones to grow together (fuse).Tell a health care provider about: Any allergies you have. All medicines you are taking, including vitamins, herbs, eye drops, creams, and bszz-pba-tyatuik medicines. Any problems you or family members have had with anesthetic medicines. Any blood disorders you have. Any surgeries you have had. A ny medical conditions you have or have had. Whether you are or may be .What are the risks?Generally, this is a safe procedure. However, problems may occur, including: Infection. Bleeding, which can sometimes require a blood transfusion. Injury to surrounding structures, including nerves. Leakage of fluid from the brain or spinal cord (cerebrospinal fluid). Blood clots. Temporary breathing difficulties.What happens before the procedure?MedicinesAsk your health care provider about: Changing or stopping your regular medicines. This is especially important if you are taking diabetes medicines or blood thinners. Taking medicines such as aspirin and ibuprofen.These medicines can thin your blood. Do not take these medicines unless your health care provider tells you to take them. Taking vxth-iap-kwjlzbn medicines, vitamins, herbs, and supplements.Staying h ydratedFollow instructions from your health care provider about hydration, which may include: Up to 2 hours before the procedure you may continue to drink clear liquids, such as water, clear fruit juice, black coffee, and plain tea.Eating and drinkingFollow instructions from your health care provider about eating and drinking, which may include: 8 hours before the procedure stop eating heavy meals or foods, such as meat, fried foods, or fatty foods. 6 hours before the procedure stop eating light meals or foods, such as toast or cereal. 6 hours before the procedure stop drinking milk or drinks that contain milk. 2 hours before the procedure stop drinking clear liqu ids.General instructions Do not use any products that contain nicotine or tobacco for at least 4 weeks before the procedure. These products include cigarettes, e-cigarettes, and chewing tobacco. If you need help quitting, ask your health care provider. Ask your health care provider: How your surgery site will be marked. What steps will be taken to help prevent infection. These may include: Removing hair at the surgery site. Washing skin with a germ-killing soap. Receiving antibiotic medicine.What happens during the procedure? An IV will be inserted into one of your veins.You will be given one or more of the following: A medicine to help you relax (sedative). A medicine to make you fall asleep (general anesthetic). A breathing tube will be placed. Your neck will be cleaned with a germ-killing solution (antiseptic solution). Your surgeon will make an incision in the front of your neck. Your neck muscles will be spread apart. The damaged disk and any damaged bone will be removed. The area where the disk was removed will be filled with a small plastic implant, a bone graft, or both. Hardware may be put in your neck. The incision will be closed with stitches (sutures). Adhesive strips or skin glue may be placed across the incision. Abandage (dressing) will be applied over the incision.The procedure may vary among health care providers and hospitals.What happens after the procedure? Your blood pressure, heart rate, breathing rate, and blood oxygen level will be monitored until you leave the hospital or clinic. You will be monitored for any signs of complications from the procedure, such as: Too much bleeding from the incision site. A buildup of blood under your skin at the surgical site. Difficulty breathing. You may continue to receive antibiotics. You can start to eat as soon as you feel comfortable. You may be given a neck brace to wear. This brace limits your neck movement while your bones are fusing. Do not drive for 24 hours if you were given a sedative during your procedure.Summary Anterior cervical diskectomy and fusion is a surgery to remove and replace an intervertebral disk. The surgery is done through the front (anterior) part of the neck. Before the procedure, follow instructions from your health care provider about changing or stopping your medicines and about eating and drinki ng. During the procedure, the damaged disk and any damaged bone will be removed. After the procedure, you will be monitored for any signs of complications from the procedure. You may be given a neck brace to wear. This brace limits your neck movement while your bones are fusing.This information is not intended to replace advice given to you by your health care provider. Make sure you discussany questions you have with your health care provider.Document Released: 08/03/2010 Document Revised: 05/10/2019 Document Reviewed: 05/10/2019[employer] Interactive Patient Education ? 2019 [employer].04/15/2020 08:16:29Constipation, AdultConstipation, AdultConstipation is when a person has fewer bowel movements in a week than normal, has difficulty having a bowel movement, or has stools that are dry, hard, or larger than normal. Constipation may be caused by an underlying condition. It may become worse with age if a person takes certain medicines and does not take in enough fluids.Follow these instructions at home:Eating and drinking Eat foods that have a lot of fiber, such as fresh fruits andvegetables, whole grains, and beans. Limit foods that are high in fat, low in fiber, or overly processed, such as dominican fries, hamburgers, cookies, candies, and soda. Drink enough fluid to keep your urine clear or pale yellow.General instructions Exercise regularly or as told by your health care provider. Go to the restroom when you have the urge to go. Do not hold it in. Take qbyd-nzi-mpjompf and prescription medicines only as told by your health care provider. These include any fiber supplements. Practice pelvic floor retraining exercises, such as deep breathing while relaxing the lower abdomen and pelvic floor relaxation during bowel movements. Watch your condition for anychanges. Keep all follow-up visits as told by your health care provider. This is important.Contact a health care provider if: You have pain that gets worse. You have a fever. You do not have a bowel movement after 4 days. You vomit. You are not hungry. You lose weight. You are bleeding from the anus. You have thin, pencil- like stools.Get help right away if: You have a fever and your symptoms suddenly get worse. You leak stool or have blood in your stool. Your abdom en is bloated. You have severe pain in your abdomen. You feel dizzy or you faint.This information is not intended to replace advice given to you by your health care provider. Make sure you discuss any questions you have with your health care provider.Document Released: 05/13/2005 Document Revised: 03/04/2017 Document Reviewed: 02/02/2017[employer] Interactive Patient Education ? 2019 [employer].Follow Up Care02/15/2020 13:44:23With: Nicanor HoffmannAddress: [facility] [id number] [facility], [place] [address]- Business (1)When: 05/01/2020 15:30:00
== END 2020-07-11 10:15 | disposition home or self-care (01) ==
LOC: END 07:36
PROVIDERS: ATTEND Internal Medicine Gastroenterology
DX: Z12.11 Encounter for screening for malignant neoplasm of colon (principal); I10 Essential (primary) hypertension; Z03.818 Encounter for observation for suspected exposure to other biological agents ruled out; Z79.899 Other long term (current) drug therapy
CPT/HCPCS: 45378; 87635; 00812; J2704; C9803; 812